=== PATIENT | female | born 1965 | race Caucasian/White ===

== ENCOUNTER 2022-04-22 04:21 | Day surgery (SDC) | payer BC, OTHER ==
[2022-04-18 16:54] VITALS: BMI 28.3
[2022-04-22] MEDS ORDERED: IBUPROFEN 800 MG/8 ML IJ IVPB PRN (12:43)
[2022-04-22] MEDS ORDERED: ONDANSETRON 4 MG/2 ML VIAL IVPUSH PRN ×2 (12:43→13:55)
[2022-04-22] MEDS ORDERED: oxyCODONE HCL 5 MG TABLET PO PRN (12:43)
[2022-04-22] MEDS ORDERED: IBUPROFEN 600 MG TABLET (FP) PO PRN (12:43)
[2022-04-22] MEDS ORDERED: ELECTROLYTE-148 SOLN 1,000 ML IV SCH (12:45)
[2022-04-22] MEDS ORDERED: PROPOFOL 40 ML ONE (13:11)
[2022-04-22] MEDS ORDERED: MIDAZOLAM HCL 2 MG/2 ML SINGLE DOSE VIAL ONE (13:11)
[2022-04-22] MEDS ORDERED: LIDOCAINE HCL/PF 2% SDV 5ML VIAL ONE (13:11)
[2022-04-22] MEDS ORDERED: LACTATED RINGERS SOLUTION 1,000 ML IV SCH (14:00)
[2022-04-22] MEDS ORDERED: ONDANSETRON 4 MG/2 ML VIAL ONE (14:07)
[2022-04-22 16:13] VITALS: PULSE 80; RESP 20
[2022-04-22 16:50] VITALS: BP 131/79; TEMP 97.6
== END 2022-04-22 16:45 | disposition home or self-care (01) ==
LOC: JASU-SURG 04:21
PROVIDERS: ATTEND Obstetrics & Gynecology
PROC: 0UDB7ZX Extraction of Endometrium, Via Natural or Artificial Opening, Diagnostic (ICD-10-PCS; principal; 2022-04-22 11:00)
DX: N95.0 Postmenopausal bleeding (principal)
CPT/HCPCS: 88305-TC; 94760